=== PATIENT | male | born 1975 | race Caucasian/White ===

== ENCOUNTER 2018-11-03 23:44 | Emergency (ER) | payer OTHER ==
[2018-11-04] MEDS ORDERED: NORMAL SALINE 1000 ML 1,000 ML IV ONE (00:36)
--- NOTE | 2018-11-04 00:39 | ER Document Report ---
ED General - General Chief Complaint: Abdominal Pain Stated Complaint: ABDOMINAL PAIN Time Seen by Provider: 11/04/18 00:35 Mode of Arrival: Medic Information source: Patient Notes: This is a 43-year-old man with a history of hypertension who presents to the emergency room with a sudden onset of upper abdominal pain associated with writhing and nausea. Patient states that the pain lasted approximately an hour and spontaneously resolved. He denies any fever. He denies any blood in the stool or hematemesis. Patient states he is scheduled for an EGD. Dr. Rodriguez. He has had 2 episodes like this in the past approximately 2 weeks ago. TRAVEL OUTSIDE OF THE [place] IN LAST 30 DAYS: No - HPI Onset: Just prior to arrival Onset/Duration: Sudden Quality of pain: Dull Severity: Severe Pain Level: 5 Associated symptoms: Nausea. denies: Diarrhea, Fever, Vomiting, Shortness of breath Exacerbated by: Other - Occurred 20 minutes after food Relieved by: Denies Similar symptoms previously: Yes Recently seen / treated by doctor: Yes - Related Data Allergies/Adverse Reactions: No Known Allergies Allergy (Verified 03/15/16 09:32) Past Medical History - General Information source: Patient - Social History Smoking Status: Never Smoker Cigarette use (# per day): No Chew tobacco use (# tins/day): No Frequency of alcohol use: None Drug Abuse: None Lives with: Family Family History: None Patient has suicidal ideation: No Patient has homicidal ideation: No - Past Medical History Cardiac Medical History: Reports: Hx Hypertension Denies: Hx Coronary Artery Disease, Hx Heart Attack Pulmonary Medical History: Denies: Hx Asthma, Hx Bronchitis, Hx COPD, Hx Pneumonia Neurological Medical History: Denies: Hx Cerebrovascular Accident, Hx Seizures Musculoskeletal Medical History: Denies Hx Arthritis Past Surgical History: Reports: Hx Orthopedic Surgery - Immunizations Hx Diphtheria, Pertussis, Tetanus Vaccination: Yes Review of Systems - Review of Systems Constitutional: denies: Chills, Fever EENT: No symptoms reported Cardiovascular: No symptoms reported Respiratory: No symptoms reported Gastrointestinal: Abdominal pain, Nausea Genitourinary: No symptoms reported Male Genitourinary: No symptoms reported Musculoskeletal: No symptoms reported Skin: No symptoms reported Hematologic/Lymphatic: No symptoms reported Neurological/Psychological: No symptoms reported Physical Exam - Vital signs Vitals: Temp Pulse Resp BP Pulse Ox 97.8 F 90 18 114/79 98 11/04/18 00:39 11/04/18 00:39 11/04/18 00:39 11/04/18 00:39 11/04/18 00:39 Notes: Physical exam: GENERAL: Currently, the patient is alert and oriented x3 and no complaints of pain. HEAD: Atraumatic, normocephalic. EYES: Pupils equal round and reactive to light, extraocular movements intact, sclera anicteric, conjunctiva are normal. ENT: TMs normal, nares patent, oropharynx clear without exudates. Moist mucous membranes. NECK: Normal range of motion, supple without obvious mass or JVD. LUNGS: Breath sounds clear to auscultation bilaterally and equal. No wheezes rales or rhonchi. HEART: Regular rate and rhythm without murmurs, rubs or gallops. ABDOMEN: Soft, normoactive bowel sounds. No tenderness to palpation. No guarding, no rebound. No masses appreciated. EXTREMITIES: Normal range of motion, no pitting or edema. No clubbing or cyanosis. NEUROLOGICAL: Cranial nerves II through XII grossly intact. Normal speech, moving all extremities. PSYCH: Normal mood, normal affect. SKIN: Warm, Dry, normal turgor, no rashes or lesions noted. Bedside ultrasound: No hydronephrosis, no obvious gallbladder disease Course - Vital Signs Vital signs: Temp Pulse Resp BP Pulse Ox 97.8 F 90 18 114/79 98 11/04/18 00:39 11/04/18 00:39 11/04/18 00:39 11/04/18 00:39 11/04/18 00:39 - Laboratory Result Diagrams: 11/04/18 00:51 11/04/18 00:51 Laboratory results interpreted by me: 11/04/18 11/04/18 00:51 00:51 WBC 13.9 H Lymphocytes % 10.8 L Eosinophils % 7.9 H Absolute Neutrophils 10.5 H Absolute Eosinophils 1.1 H BUN 23 H Glucose 116 H - Diagnostic Test Radiology reviewed: Image reviewed, Reports reviewed - Percent of the gallbladder shows no acute disease - EKG Interpretation by Me Rate: Normal Rhythm: NSR - EKG shows normal sinus rhythm with a ventricular rate of 90, no acute ST changes Discharge - Discharge Clinical Impression: Abdominal pain Condition: Stable Disposition: HOME, SELF-CARE Instructions: Abdominal Pain ([facility]) Additional Instructions: As we discussed, Dr. Rodriguez and Dr. Ruth will be able to see all the tests done today. Your EKG and heart tests were normal. Kidney function tests, liver function tests were normal. White blood count was slightly elevated which we sometimes see with this intensity of pain. CT showed no obvious intra-abdominal pathology. The ultrasound showed no evidence of gallbladder disease. It is possible that your symptoms could be due to biliary spasm (which could be intermittent) or the function of the gallbladder. Gallbladder function can be assessed by an outpatient study called the HIDA scan. I would like you to follow-up with Dr. Ruth and Dr. Rodriguez. Return to the emergency room for worsening pain Forms: Return to Work Referrals: COMFORT RUTH, DO [Primary Care Provider] - Follow up as needed
[2018-11-04 01:02] LABS: ABSOLUTE EOSINOPHILS # (AUTO) 1.1 10^3/uL (0.0-0.6); ABSOLUTE LYMPHOCYTES (AUTO) 1.5 10^3/uL (0.5-4.7); ABSOLUTE MONOCYTES (AUTO) 0.8 10^3/uL (0.1-1.4); ABSOLUTE NEUT (AUTO) 10.5 10^3/uL (1.7-8.2); BASOPHILS % (AUTO) 0.2 % (0-2); EOSINOPHILS % (AUTO) 7.9 % (0-6); HEMATOCRIT 46.2 % (37.9-51.0); LYMPHOCYTES % (AUTO) 10.8 % (13-45); MEAN CORPUSCULAR HEMOGLOBIN 30.3 pg (27.0-33.4); MEAN CORPUSCULAR HGB CONC 34.7 g/dL (32.0-36.0); MEAN CORPUSCULAR VOLUME 87 fl (80-97); MONOCYTES % (AUTO) 5.7 % (3-13); PLATELET COUNT 217 10^3/uL (150-450); RED BLOOD COUNT 5.29 10^6/uL (4.35-5.55); RED CELL DISTRIBUTION WIDTH 12.9 % (11.5-14.0); SEGMENTED NEUTROPHILS % (AUTO) 75.4 % (42-78); TOTAL CELLS COUNTED % (AUTO) 100 %; WHITE BLOOD COUNT 13.9 10^3/uL (4.0-10.5)
[2018-11-04 01:24] LABS: ALANINE AMINOTRANSFERASE 37 U/L (21-72); ALBUMIN 4.1 g/dL (3.5-5.0); ALKALINE PHOSPHATASE 51 U/L (38-126); ANION GAP 9 (5-19); ASPARTATE AMINO TRANSFERASE 37 U/L (17-59); BILIRUBIN,DIRECT 0.3 mg/dL (0.0-0.4); BILIRUBIN,TOTAL 0.5 mg/dL (0.2-1.3); BLOOD UREA NITROGEN 23 mg/dL (7-20); CALCIUM 9.6 mg/dL (8.4-10.2); CARBON DIOXIDE 26 mmol/L (22-30); CHLORIDE 103 mmol/L (98-107); CREATINE KINASE 88 U/L (55-170); GLUCOSE 116 mg/dL (75-110); LIPASE 235.9 U/L (23-300); POTASSIUM 4.5 mmol/L (3.6-5.0); SODIUM 138.1 mmol/L (137-145); TOTAL PROTEIN 6.7 g/dL (6.3-8.2)
--- NOTE | 2018-11-04 01:30 | RADIOLOGY REPORT (SQ) ---
CLINICAL HISTORY: upper abdominal pain r/o gb disease COMPARISON: None. 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 Gallbladder is normally distended without wall thickening, gallstones or pericholecystic fluid. Common bile duct measures 3 mm. Abdominal aorta is not aneurysmal. Right kidney measures 10.3 cm without hydronephrosis. IMPRESSION: Normal right upper quadrant study.
[2018-11-04 01:35] LABS: CREATINE KINASE MB 0.99 ng/mL (<4.55)
[2018-11-04 01:38] LABS: TROPONIN I < 0.012 ng/mL
[2018-11-04 01:57] LABS: APPEARANCE,URINE CLEAR; BILIRUBIN,URINE NEGATIVE (NEGATIVE); COLOR,URINE YELLOW; GLUCOSE, URINE NEGATIVE (NEGATIVE); KETONES,URINE NEGATIVE (NEGATIVE); LEUKOCYTE ESTERASE,URINE NEGATIVE (NEGATIVE); NITRITE,URINE NEGATIVE (NEGATIVE); PROTEIN,URINE NEGATIVE (NEGATIVE); URINE SPECIFIC GRAVITY 1.012; UROBILINOGEN,URINE NEGATIVE mg/dL (<2.0)
--- NOTE | 2018-11-04 03:22 | RADIOLOGY REPORT (SQ) ---
CLINICAL HISTORY: abd pain COMPARISON: None. 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 FINDINGS: Lower lungs are clear. Abdomen: Liver is mildly enlarged and fatty in attenuation. There is no biliary dilatation. Gallbladder is normal in appearance. The pancreas and spleen are normal in appearance. The adrenal glands and kidneys are unremarkable. Abdominal aorta is normal in course and caliber without aneurysm. There is no free air. There is no retroperitoneal adenopathy. Pelvis: There is moderate amount of stool throughout the colon. Urinary bladder is unremarkable. There is trace free pelvic fluid. Appendix is normal. Skeleton: There are no acute osseous findings. No suspicious bony lesions. Fusion of the L5-S1 disc space is been performed. IMPRESSION: No acute inflammatory process. No renal or ureteral calculi.
[2018-11-04 03:54] VITALS: BP 113/70
--- NOTE | 2018-11-04 07:44 | EKG REPORT ---
SEVERITY:- NORMAL ECG - SINUS RHYTHM : Confirmed by: Duc Santiago MD 04-Nov-2018 07:43:48
== END 2018-11-04 03:54 | disposition home or self-care (01) ==
LOC: ER 23:44
DX: R10.9 Unspecified abdominal pain (principal); R11.0 Nausea; I10 Essential (primary) hypertension
CPT/HCPCS: 93005; 99285; 96360; 36415; 82553; 82550; 83690; 85025; 80053; 81001; 84484; 76705; 74177; 93010; J7030

== ENCOUNTER → 2019-08-07 | Outpatient (CLI) | payer OTHER ==
[2019-08-07 10:58] LABS: APPEARANCE,URINE CLEAR; BILIRUBIN,URINE NEGATIVE (NEGATIVE); COLOR,URINE STRAW; GLUCOSE, URINE NEGATIVE (NEGATIVE); KETONES,URINE NEGATIVE (NEGATIVE); LEUKOCYTE ESTERASE,URINE NEGATIVE (NEGATIVE); NITRITE,URINE NEGATIVE (NEGATIVE); PROTEIN,URINE NEGATIVE (NEGATIVE); URINE SPECIFIC GRAVITY 1.002; UROBILINOGEN,URINE NEGATIVE mg/dL (<2.0)
[2019-08-07 11:04] LABS: ABSOLUTE EOSINOPHILS # (AUTO) 0.2 10^3/uL (0.0-0.6); ABSOLUTE MONOCYTES (AUTO) 0.4 10^3/uL (0.1-1.4); ABSOLUTE NEUT (AUTO) 2.9 10^3/uL (1.7-8.2); BASOPHILS % (AUTO) 0.7 % (0-2); EOSINOPHILS % (AUTO) 3.7 % (0-6); HEMATOCRIT 45.4 % (37.9-51.0); HEMOGLOBIN 15.4 g/dL (13.5-17.0); LYMPHOCYTES % (AUTO) 22.3 % (13-45); MEAN CORPUSCULAR HEMOGLOBIN 29.6 pg (27.0-33.4); MEAN CORPUSCULAR HGB CONC 33.9 g/dL (32.0-36.0); MEAN CORPUSCULAR VOLUME 87 fl (80-97); MONOCYTES % (AUTO) 8.5 % (3-13); PLATELET COUNT 230 10^3/uL (150-450); RED CELL DISTRIBUTION WIDTH 12.7 % (11.5-14.0); SEGMENTED NEUTROPHILS % (AUTO) 64.8 % (42-78); TOTAL CELLS COUNTED % (AUTO) 100 %; WHITE BLOOD COUNT 4.5 10^3/uL (4.0-10.5)
[2019-08-07 11:15] LABS: INTERNATIONAL RATION (INR) 1.01; PROTHROMBIN TIME 13.3 SEC (11.4-15.4)
[2019-08-07 11:16] LABS: PARTIAL THROMBOPLASTIN TIME 29.4 SEC (23.5-35.8)
== END ==
LOC: OD 10:15
PROVIDERS: ATTEND Nurse Practitioner Family
DX: Z51.81 Encounter for therapeutic drug level monitoring (principal); Z79.1 Long term (current) use of non-steroidal anti-inflammatories (NSAID)
CPT/HCPCS: 36415; 81001; 85025; 85610; 85730